=== PATIENT | male | born 1985 | race Caucasian/White ===

== ENCOUNTER 2016-07-07 06:07 | Observation (INO) ==
[2016-07-07] MEDS ORDERED: MOM Conc 10 ML UD.LIQ PO PRN (06:30)
[2016-07-07] MEDS ORDERED: Haloperidol Lactate 5 MG/ML VIAL IM PRN (06:30)
[2016-07-07] MEDS ORDERED: *HR* LORazepam 2 MG/ML VIAL IM PRN (06:30)
[2016-07-07] MEDS ORDERED: *HR* LORazepam 1 MG TABLET PO PRN (06:30)
[2016-07-07] MEDS ORDERED: traZODone 50 MG TABLET PO PRN (06:30)
[2016-07-07] MEDS ORDERED: hydrOXYzine pamoate 25 MG CAPSULE PO PRN (06:30)
[2016-07-07] MEDS ORDERED: Mag Hydrox/Al Hydrox/Simeth 30 ML UDC PO PRN (06:30)
[2016-07-07] MEDS ORDERED: Acetaminophen 325 MG TABLET PO PRN (06:30)
[2016-07-07] MEDS: Nicotine 2 MG GUM BC PRN ×4 (10:58→20:44)
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
[2016-07-07] MEDS: Venlafaxine XR (24 HR) 75 MG CAP.ER.24H PO SCH (11:12)
--- NOTE | 2016-07-07 11:50 | Neurology - Consult Note ---
Date of Encounter: 07/07/16 Time of Encounter: 11:45 Assessment and Plan (1) Seizure disorder Current Visit: Yes Status: Chronic Patient reports having seizures intermittently for 10 years, but has never been on treatment Will obtain EEG, MRI w/o contrast for further evaluation Start treatment with Depakote 500 mg BID as patient likely has underlying depression History of Present Illness Chief complaint: suicidal ideations, h/o seizures HPI: Mr. Wayne is a 30 year old male who presents with suicidal ideations and has been admitted to the psychiatric unit. Neurology has been consulted due to his history of seizures. Patient states that the seizures first happened in 2006, where his mother said that he had generalized movements in his arms and legs and he had urinary incontinence. He states in the past few years, he has an episode roughly every 1 or 2 months, and the majority of them are witnessed by family members and fiance. He claims the episodes usually last anywhere from 20-40 minutes and he has some warning signs, although he is unable to identify specific triggering factors. His last episode was 2 days ago, and he complains that he bit his tongue but did not have any urinary incontinence. He is aware of his condition however has never seen a doctor for it and is not on any medications other than as needed Ibuprofen. He does report his mother has a history of seizures. Denies any drug use but does drink socially and chews tobacco. Past Med Surg Social Fam HX - Past Medical History Medical history: hypertension, seizures Psychiatric history: no psych history - Social History Smoking Status: Former smoker Smokeless Tobacco Status: No Alcohol use: occasionally Drug use: none Medications and Allergies No Known Home Drugs 07/06/16 [History] Allergies clindamycin Allergy (Verified 07/06/16 23:07) See Comments All Systems: A 10-system review of systems was performed and is negative for pertinent findings except as documented above in the HPI. - Constitutional Constitutional ROS IM: no fever(s), no frequent falls, no headache(s), no weakness - Eyes Eyes: left: decreased vision (chronic "legally blind") - Ears Ears: bilateral: decreased hearing (intermittent) - Nose, Mouth, Throat Nose, mouth and throat: dizziness, no dysphagia, no headache(s) - Cardiovascular Cardiovascular ROS IM: no chest pain, no edema - Respiratory Respiratory IM: no cough, no hemoptysis, no wheezing - Gastrointestinal Gastrointestinal: no abdominal pain, no melena, no nausea, no vomiting - Genitourinary Genitourinary ROS: no urinary hesitancy, no urinary incontinence - Musculoskeletal Musculoskeletal ROS IM: no muscle weakness, no neck pain, no numbness, no stiffness - Neurological Neurological ROS: convulsions, no abnormal gait, no dizziness, no focal weakness , no frequent falls, no lack of coordination - Psychiatric Psychiatric general PM: depression, suicidal ideation Physical Examination - Vital Signs Vital Signs: Initial Vital Signs Temp Pulse Resp BP 98.3 F 85 16 141/87 07/07/16 06:10 07/07/16 06:10 07/07/16 06:10 07/07/16 06:10 - Constitutional General appearance: comfortable - Neurologic Sensorimotor examination: intact Detailed motor examination: full strength in all major muscle groups Motor examination - right side: 5/5: deltoids, biceps, triceps, wrist flexion, wrist extension, signal wirer, hip flexors Motor examination - left side: 5/5: deltoids, biceps, triceps, wrist flexion, wrist extension, hip flexors, signal wirer, quadriceps Detailed sensory examination: intact Reflex and gait examination: intact Mental Status Examination: awake, alert, oriented to person, oriented to place, oriented to time, follows commands appropriately, answers questions appropriately, no agnosia, no aphasia, no aproxia Cranial nerve examination: PERRL, EOMI, visual dickey intact, corneal reflexes brisk symmetrically, sensory to face intact, mastication intact, no facial asymmetry is present, no dysarthria, hearing is intact symmetrically, soft palate elevates bilaterally upon phonation, gag reflex intact, flexes SCM and trapezius muscles symmetrically with full power, tongue protrudes midline, no atrophy or facial fasiculations present Cerebellar examination: no dysmetria, performs finger to nose and heel to rucker symmetrically without ataxia, no gait ataxia, no truncal ataxia, no difficulty with rapid alternating movements Consult Discharge Plan - Plan Referrals: NO,PCP [Primary Care Provider] -
[2016-07-07] MEDS: Divalproex (12 HR) 500 MG TABLET PO SCH ×2 (14:03→20:15)
--- NOTE | 2016-07-07 15:53 | EEG/EMG/Oth Biometrics Report ---
EEG Procedure Report Date of procedure: 07/07/16 EEG Procedure: Routine EEG Procedure Note: This EEG was acquired with standard international 1020 system with EKG recording. The background EEG activity was characterized by the presence of posterior dominant alpha rhythm with the best frequency up to 11.5 Hz. The background activity was reactive to eye openings. Sleep stages were not identified during this tracing. Drowsiness was characterized by drop off of posterior dominant Alpha rhythm. There are no electrographic seizures identified during this tracing. There are no epileptiform discharges and focal slowing noted during this recording. Photic stimulation produced and produced no abnormalities. Hyperventilation procedure not performed EKG tracing showed no significant cardiac dysrhythmia. Impression: This is essentially a normal awake and drowsy EEG. Clinical Correlation: Normal EEGs, however, do not exclude epilepsy. Clinical correlation is advised.
[2016-07-08] MEDS: Divalproex (12 HR) 500 MG TABLET PO SCH (08:41)
[2016-07-08] MEDS: Venlafaxine XR (24 HR) 75 MG CAP.ER.24H PO SCH (08:42)
[2016-07-08] MEDS: Nicotine 2 MG GUM BC PRN ×2 (08:42→12:19)
[2016-07-08 08:47] VITALS: BP 158/86
--- NOTE | 2016-07-08 11:06 | Discharge Summary ---
Date of Encounter: 07/08/16 Time of Encounter: 11:02 Diagnosis - Discharge Diagnosis (1) Severe major depression, single episode, without psychotic features Status: Acute Medications - Discharge Medications Prescriptions: Divalproex (12 HR) [Depakote (12 HR)] 500 mg PO BID #60 tablet. Venlafaxine XR (24 HR) [Effexor XR] 75 mg PO DAILY #30 cap.er.24h Acetaminophen [Tylenol] 1,000 mg PO Q6HR PRN 07/08/16 [History] Divalproex (12 HR) [Depakote (12 HR)] 500 mg PO BID #60 tablet. 07/08/16 [Rx] Ibuprofen [Motrin] 400 - 800 mg PO Q6HR PRN 07/08/16 [History] Omeprazole [PriLOSEC] 20 mg PO DAILY 07/08/16 [History] Venlafaxine XR (24 HR) [Effexor XR] 75 mg PO DAILY #30 cap.er.24h 07/08/16 [Rx] Allergies clindamycin Allergy (Verified 07/06/16 23:07) See Comments Provider Date of admission: 07/07/16 06:07 Primary care physician: PCP NO Consults: 07/07/16 11:06 Consult to Neurology [CONS] Routine Consulting Provider: Neurology [facility] Reason for Consult: History of seizure that are frequent to twice a day. Never been evaluated or treated Call Completed: No 07/07/16 15:16 Consult to Interpret Exam [CONS] Routine Consulting Provider: Alex Tilley Consult to Interpret Exam: Interpret EEG Discharging clinician: Beni Ramirez Assessment and Plan - Patient/Caregiver Discharge Instructions Activity: resume usual activities as tolerated Diet: regular diet - Follow up Plan Follow up with: [facility] [Outside] - 07/17/16 8:30 am (The above appointment is with Jackie Broussard to establish you in primary care. Please arrive 15 minutes early to complete paperwork. Please bring your insurance card, photo ID and medications in their original bottles. If you do not have insurance, bring proof of income to apply for the sliding fee scale. If you are unable to keep this appointment, 24 hour business notice of cancellation is expected. Jackie will be able to refer you to specialty care as needed. ) [facility] [Outside] - 07/17/16 11:00 am (The above appointment is Donaldo Priest. Please arrive 15 minutes early. When you come to your first appointment, you will have an orientation to the agency and you will meet with a counselor. Please bring the following with you to your first visit to the clinic: 1) proof of household income (two consecutive pay stubs, social security award letter, bank statement, statement letter from [facility], child support statement, IRS 1040 or W2 form, or a statement from the person who financially supports you stating they help provide for your basic needs), 2) proof of residency (drivers license, a piece of mail showing your address, a statement from person you live with verifying you live at their address), 3) your social security card, 4) photo ID, and 5) your insurance card (if you have commercial insurance you must call to obtain a prior authorization number before you arrive to your first appointment). If you do not bring these items, you will not be seen. You are also scheduled to see the psychiatric prescriber , Dora Westfall, on 07/30/2016 at 10:00am. If you do not keep your initial appointment with Donaldo, this appointment will be cancelled.) Functional capacity at discharge: independent ambulation Overall status at discharge: Stable Disposition: Home, Self-Care Hospital Course Hospital course: Mr. Wayne is a 30 year old male admitted from [facility] for evaluation of depression and suicidal ideation. For for details of the admission please see H&P On the units patient was evaluated for depression and started on Effexor XR 75 mg, patient tolerated medication and reported improved mood and sleep. Patient participated in groups and felt good about interacting with peers and staff. He denied any suicidal ideation and participated in his discharge plan and treatment after the hospital. Patient reported history of seizures that has not been evaluated, neurology consult was requested patient was evaluated by neurology and MRI and EEG were performed. Patient was started on Depakote 500 mg twice daily and given instructions for follow-up appointments with neurology. Prior to discharge patient was medically stable, tolerating medications without any side effects. Denied any suicidal ideation, reporting feeling better about being in the hospital and having the opportunity to address his depression and seizure disorder. Discharge planned were completed by the social work administrator and shared with the patient and his . - Time Spent with Patient Total time spent providing and/or coordinating discharge services: Greater than 30 minutes Quality - Multiple Antipsychotics Patient discharged on 2 or more antipsychotic medications: No Procedures - Procedures Procedures: Medication Management, Crisis Stabilization, Supportive Therapy, Group Therapy, Psychoeducational Therapy Mental Status Exam - Mental Status Exam Patient orientation: Yes Person, Yes Time, Yes Place Level of alertness: Alert Patient appearance: Appropriate, Obese Behavior: calm, cooperative, guarded Psychomotor activity: Normal Eye contact: Minimal Contact Mood description: Euthymic/stable, Anxious Affect description: congruent with mood, euthymic, dysphoric Speech pattern: Normal rate, Normal rhythm, Normal tone Speech Volume: Normal Thought process: Linear, Goal Oriented Thought Content: No Suicidal ideation, No Homicidal ideation, No Overt delusions Perceptual Disturbances: No Auditory hallucinations, No Visual hallucinations Judgment: Limited Insight: Partial
== END 2016-07-08 13:30 | disposition home or self-care (01) ==
LOC: 1ANU 06:07 → INTOOBSV 06:07
PROVIDERS: ADMIT Psychiatry & Neurology Psychiatry; ATTEND Psychiatry & Neurology Psychiatry